=== PATIENT | male | born 2000 | race Caucasian/White ===

== ENCOUNTER 2022-10-14 20:41 | Day surgery (SDC) | payer OTHER ==
[~2022-10-14] VITALS: Ht 182.9 cm; Wt 80.9 kg
[2022-10-14 20:42] VITALS: TEMP 97.1
--- NOTE | 2022-10-14 22:39 | NUR ---
Per Dr. Gr written order: Diet liquid to full liquid diet until has endoscopy at [facility]. Patient is to be off work for 24 hours. Office will call patient 10/15/22 or 10/18/22 for follow up.
[2022-10-14 23:24] VITALS: BP 121/75; PULSE 71
== END 2022-10-14 23:05 | disposition home or self-care (01) ==
LOC: SDCO 22:20 → PACU 22:20 → COL.ER 23:05
DX: T18.198A Other foreign object in esophagus causing other injury, initial encounter (principal); F17.210 Nicotine dependence, cigarettes, uncomplicated; K22.2 Esophageal obstruction; Z28.310 Unvaccinated for COVID-19
CPT/HCPCS: J0330; J2250; J2405; J2704